=== PATIENT | male | born 1995 | race Caucasian/White ===

== ENCOUNTER 2025-06-19 12:38 | Emergency (ER) | payer OTHER ==
[~2025-06-19] VITALS: Ht 177.8 cm; Wt 90.0 kg
[2025-06-19 12:47] VITALS: TEMP 98
[2025-06-19] MEDS: FAMOTIDINE 20 MG/2 ML VIAL IVP ONE (14:08)
[2025-06-19] MEDS: MAG HYDROX/ALUMINUM HYD/SIMETH 30 ML SUSPENSION UDCUP PO ONE (14:08)
[2025-06-19] MEDS: ONDANSETRON HCL 4 MG/2 ML VIAL IVP ONE (14:08)
[2025-06-19] MEDS: SODIUM CHLORIDE 0.9% 1,000 ML IV ONE (14:08)
[2025-06-19 14:17] LABS: CALCIUM, TOTAL 9.2 mg/dL (8.8-10.5); CREATININE 0.82 mg/dL (0.60-1.30); GLOMERULAR FILTR. RATE CALC > 60 mL/min (>60); GLUCOSE,RANDOM 103 mg/dL (70-110); SODIUM SERUM 138 mmol/L (136-145); UREA NITROGEN, BLOOD 16 mg/dL (7-18)
[2025-06-19 14:25] LABS: ASPARTATE AMINOTRANSFERASE 31.0 U/L (15-37); TOTAL PROTEIN, SERUM 7.5 g/dL (6.4-8.2)
[2025-06-19 14:50] LABS: PLATELET COUNT (AUTO) 164 K/uL (150-450); RED BLOOD CELL COUNT(AUTO) 4.66 MIL/uL (4.50-5.90); RED CELL DISTRIBUTION WIDTH 14.7 % (11.5-14.5); WHITE BLOOD COUNT (AUTO) 10.2 K/uL (4.5-11.0)
[2025-06-19] MEDS ORDERED: 0.9% SODIUM CHLORIDE 10 ML SYRINGE IVP ONE (15:07)
[2025-06-19] MEDS ORDERED: SODIUM CHLORIDE 0.9% 100 ML ONE (15:07)
[2025-06-19] MEDS ORDERED: IOHEXOL 350 MG/ML 100 ML VIAL ONE (15:07)
[2025-06-19] MEDS ORDERED: OMEP-148 PO (15:58)
[2025-06-19 15:59] LABS: APPEARANCE,URINE HAZY (CLEAR); GLUCOSE, URINE (UA) NEGATIVE (NEGATIVE); LEUKOCYTE ESTERASE ,URINE NEGATIVE (NEGATIVE); NITRATE,URINE NEGATIVE (NEGATIVE); OCCULT BLOOD,URINE NEGATIVE (NEGATIVE)
[2025-06-19 16:01] LABS: SPECIFIC GRAVITIY, URINE 1.030 (1.003-1.030)
[2025-06-19 16:27] VITALS: BP 128/79; PULSE 62; RESP 18; O2SAT 98
== END 2025-06-19 16:29 | disposition home or self-care (01) ==
LOC: EMS 12:39
DX: R10.11 Right upper quadrant pain (principal); R42 Dizziness and giddiness; Z87.11 Personal history of peptic ulcer disease
CPT/HCPCS: 99285; 74177; 96374; 76705; 96361; 96375; 80048; 80076; 81003; 83690; 83735; 85025; 36415; Q9967; J3490; J2405; J7030; J7050